=== PATIENT | female | born 1960 | race Caucasian/White ===

== ENCOUNTER 2023-10-30 07:11 | Day surgery (SDC) | payer BC ==
[2023-10-26 16:40] LABS: BASOPHILS % (AUTO) 0.4 % (0-1); EOSINOPHILS # (AUTO) 0.2 X10'3 (0-0.9); EOSINOPHILS % (AUTO) 4.8 % (0-6); LYMPHOCYTES # (AUTO) 1.6 X10'3 (1.1-4.8); LYMPHOCYTES % (AUTO) 31.4 % (21-51); MEAN CORPUSCULAR HEMOGLOBIN 31.4 PG (27.0-31.0); MEAN CORPUSCULAR HGB CONC 33.2 g/dL (33.0-36.5); MEAN CORPUSCULAR VOLUME 94.5 FL (78-98); MEAN PLATELET VOLUME 8.7 FL (7.4-10.4); MONOCYTES # (AUTO) 0.5 X10'3 (0-0.9); MONOCYTES % (AUTO) 8.9 % (2-12); NEUTROPHILS # (AUTO) 2.9 X10'3 (1.8-7.7); NEUTROPHILS % (AUTO) 54.5 % (42-75); PRE OP HEMATOCRIT 44.9 % (35.0-45.0); PRE OP HEMOGLOBIN 14.9 g/dL (12.0-16.0); PRE OP PLATELET COUNT 213 X10'3 (140-440); PRE OP WHITE BLOOD COUNT 5.3 10'3 (4.8-10.8); RED BLOOD COUNT 4.75 X10'6 (4.20-5.60); RED CELL DISTRIBUTION WIDTH 14.4 % (11.5-14.5)
[2023-10-26 16:42] LABS: ALBUMIN 3.6 G/DL (3.4-5.0); ALKALINE PHOSPHATASE 117 IU/L (46-116); BLOOD UREA NITROGEN 21 MG/DL (7-18); BUN/CREATININE RATIO 23.6 (10.0-20.0); CALCIUM 8.9 MG/DL (8.5-10.1); CHLORIDE 105 MMOL/L (99-107); CREATININE 0.89 MG/DL (0.40-0.90); PRE OP ALT 46 U/L (30-65); PRE OP ANION GAP 12 (8-16); PRE OP AST 49 U/L (10-37); PRE OP BILIRUB, TOTAL 0.2 MG/DL (0.0-1.0); PRE OP POTASSIUM 3.5 MMOL/L (3.4-5.1); PRE OP SODIUM 139 MMOL/L (135-145); TOTAL CARBON DIOXIDE 22.4 MMOL/L (24-32); TOTAL PROTEIN 7.1 G/DL (6.4-8.2); eGFR 64 ML/MIN
[2023-10-26 16:48] LABS: PRE OP GLUCOSE 215 MG/DL (70-104)
[2023-10-30] VITALS (11 sets, daily range): BP systolic 95–118; BP diastolic 55–77; PULSE 52–61; RESP 9–16; TEMP 97.2; O2SAT 94–100
[~2023-10-30] VITALS: Ht 160 cm; Wt 108.9 kg
[~2023-10-30 07:11] MED LIST: ACET-2971 PO; ARIP10TA57 PO; ASPI1TAB PO; ATOR40TA72 PO; BUPIVAcaine/PF 2.5mg/ml (0.25%) 10ml vial ONE; DESV50TA20 PO; DOCUMENT DATE & TIME OF BETA-BLOCKER PO ONE; GABA800T11 PO; INSU100V13 SQ; INSU100V41 SQ; MELO-102 PO; OMEP40CA21 PO; PROP40TA7 PO; TOP100T PO; [UNRECOGNIZED DRUG - OTHER] INJ; clindamycin 600mg/D5W 50ml 50 ML IV ONE; famotidine 20mg tablet PO ONE; ringers solution, lacted 1,000 ML IV ONE
[2023-10-30] MEDS ORDERED: fentaNYL/PF 50MCG/1 ML 2ML syringe ONE (10:40)
[2023-10-30] MEDS ORDERED: midazolam 1 mg/ML 2ml injection ONE (10:41)
[2023-10-30] MEDS ORDERED: acetaminophen 1,000mg/100ml IV 100 ML IV ONE (10:50)
[2023-10-30] MEDS ORDERED: HYDROmorphone/PF 0.2 MG/ML SYRINGE IV PRN ×2 (10:50)
[2023-10-30] MEDS ORDERED: morphine 4 MG/ML inj SYRINge IV PRN (10:50)
[2023-10-30] MEDS ORDERED: labetalol 20mg/4ml (5mg/ml) syringe IV PRN (10:50)
[2023-10-30] MEDS ORDERED: ketorolac tromethamine 15mg/ml inj. IV ONE (10:50)
[2023-10-30] MEDS ORDERED: proCHLORperazine 10 MG/2 ml inj IV PRN (10:50)
[2023-10-30] MEDS ORDERED: morphine 2 MG/ML inj. syringe IV PRN (10:50)
[2023-10-30] MEDS ORDERED: meperidine/PF 25mg/ml syringe IV PRN (10:50)
[2023-10-30] MEDS ORDERED: hydrALAZINE 20mg/ml inj. IV PRN (10:50)
[2023-10-30] MEDS ORDERED: ondansetron/PF 4mg/2ml inj IV PRN (10:50)
[2023-10-30] MEDS ORDERED: ringers solution, lacted 1,000 ML IV SCH (10:50)
[2023-10-30] MEDS ORDERED: LIDOcaine 0.5% (5mg/ml) 50ml vial ONE (11:03)
[2023-10-30] MEDS ORDERED: propofol inj 20 ML IV ONE ×2 (11:03)
[2023-10-30] MEDS ORDERED: bupivacaine (with preservative) 5 mg/ml inj. 50ml IJ ONE (11:12)
== END 2023-10-30 13:05 | disposition home or self-care (01) ==
LOC: PAS 07:11 → EDBD 09:45 → PAS 13:05
PROVIDERS: ATTEND Orthopaedic Surgery Hand Surgery
DX: M18.11 Unilateral primary osteoarthritis of first carpometacarpal joint, right hand (principal); J44.9 Chronic obstructive pulmonary disease, unspecified; G47.33 Obstructive sleep apnea (adult) (pediatric); F32.A Depression, unspecified; E11.9 Type 2 diabetes mellitus without complications; E66.9 Obesity, unspecified; Z68.42 Body mass index [BMI] 45.0-49.9, adult; G43.909 Migraine, unspecified, not intractable, without status migrainosus; F41.9 Anxiety disorder, unspecified; Z87.11 Personal history of peptic ulcer disease; Z91.040 Latex allergy status; Z88.2 Allergy status to sulfonamides; Z88.0 Allergy status to penicillin; Z88.1 Allergy status to other antibiotic agents; Z91.048 Other nonmedicinal substance allergy status; Z90.49 Acquired absence of other specified parts of digestive tract; Z90.710 Acquired absence of both cervix and uterus; Z98.890 Other specified postprocedural states; Z79.899 Other long term (current) drug therapy
CPT/HCPCS: 25310; 25447; 36415; 80053; 82948; 85025; A6258; J2250; J2704; J3010; J3490; J7030; J7120; Z7506; Z7508; Z7512; A4215; A4618; A6402; A7000

== ENCOUNTER 2024-01-11 11:03 | Outpatient (CLI) | payer BC ==
[~2024-01-11 11:03] MED LIST changes: -BUPIVAcaine/PF 2.5mg/ml (0.25%) 10ml vial ONE; -DOCUMENT DATE & TIME OF BETA-BLOCKER PO ONE; -clindamycin 600mg/D5W 50ml 50 ML IV ONE; -famotidine 20mg tablet PO ONE; -ringers solution, lacted 1,000 ML IV ONE
[2024-01-11 12:32] LABS: BASOPHILS # (AUTO) 0.1 X10'3 (0-0.2); BASOPHILS % (AUTO) 0.7 % (0-1); EOSINOPHILS # (AUTO) 0.3 X10'3 (0-0.9); EOSINOPHILS % (AUTO) 3.6 % (0-6); LYMPHOCYTES # (AUTO) 2.2 X10'3 (1.1-4.8); LYMPHOCYTES % (AUTO) 29.6 % (21-51); MEAN CORPUSCULAR HEMOGLOBIN 30.9 PG (27.0-31.0); MEAN CORPUSCULAR HGB CONC 33.3 g/dL (33.0-36.5); MEAN CORPUSCULAR VOLUME 92.8 FL (78-98); MEAN PLATELET VOLUME 8.4 FL (7.4-10.4); MONOCYTES # (AUTO) 0.5 X10'3 (0-0.9); MONOCYTES % (AUTO) 7.3 % (2-12); NEUTROPHILS # (AUTO) 4.4 X10'3 (1.8-7.7); NEUTROPHILS % (AUTO) 58.8 % (42-75); PRE OP HEMATOCRIT 41.5 % (35.0-45.0); PRE OP HEMOGLOBIN 13.8 g/dL (12.0-16.0); PRE OP PLATELET COUNT 228 X10'3 (140-440); PRE OP WHITE BLOOD COUNT 7.4 10'3 (4.8-10.8); RED BLOOD COUNT 4.48 X10'6 (4.20-5.60)
[2024-01-11 12:51] LABS: ALBUMIN 3.3 G/DL (3.4-5.0); ALBUMIN/GLOBULIN RATIO 0.9 (1.1-1.5); ALKALINE PHOSPHATASE 90 IU/L (46-116); BLOOD UREA NITROGEN 17 MG/DL (7-18); BUN/CREATININE RATIO 17.7 (10.0-20.0); CALCIUM 8.7 MG/DL (8.5-10.1); CHLORIDE 107 MMOL/L (99-107); CREATININE 0.96 MG/DL (0.40-0.90); PRE OP ALT 33 U/L (30-65); PRE OP ANION GAP 8 (8-16); PRE OP AST 30 U/L (10-37); PRE OP BILIRUB, TOTAL 0.2 MG/DL (0.0-1.0); PRE OP GLUCOSE 129 MG/DL (70-104); PRE OP POTASSIUM 4.8 MMOL/L (3.4-5.1); PRE OP SODIUM 143 MMOL/L (135-145); TOTAL CARBON DIOXIDE 27.9 MMOL/L (24-32); TOTAL PROTEIN 6.8 G/DL (6.4-8.2); eGFR 59 ML/MIN
[2024-01-11 12:58] LABS: HEMOGLOBIN A1C 8.8 % (4.5-6.2)
[2024-01-11] MEDS ORDERED: AMIT50TA15 PO (13:11)
[2024-01-11] MEDS ORDERED: [UNRECOGNIZED DRUG - OTHER] (13:11)
[2024-01-11] MEDS ORDERED: [UNRECOGNIZED DRUG - OTHER] (13:11)
[2024-01-11] MEDS ORDERED: IBUP-862 PO (13:11)
[2024-01-11] MEDS ORDERED: INSU100V41 SQ (13:11)
[2024-01-11] MEDS ORDERED: [UNRECOGNIZED DRUG - OTHER] PO (13:11)
[2024-01-11] MEDS ORDERED: [UNRECOGNIZED DRUG - OTHER] (13:11)
[2024-01-11] MEDS ORDERED: ASPI-845 PO (13:11)
== END 2024-01-11 23:59 | disposition home or self-care (01) ==
LOC: EDBD → LAB 11:03 → EDSTATUS 01-18 10:45
PROVIDERS: ATTEND Orthopaedic Surgery
DX: Z01.812 Encounter for preprocedural laboratory examination (principal); M17.11 Unilateral primary osteoarthritis, right knee; E11.9 Type 2 diabetes mellitus without complications; Z79.4 Long term (current) use of insulin
CPT/HCPCS: 36415; 80053; 83036; 85025; 87081

== ENCOUNTER 2024-08-26 06:21 | Day surgery (SDC) | payer BC ==
[2024-08-20 12:42] LABS: HEMOGLOBIN A1C 6.9 % (4.5-6.2)
[2024-08-20 12:48] LABS: ALBUMIN 3.7 G/DL (3.4-5.0); ALBUMIN/GLOBULIN RATIO 1.1 (1.1-1.5); ALKALINE PHOSPHATASE 60 IU/L (46-116); BLOOD UREA NITROGEN 20 MG/DL (7-18); BUN/CREATININE RATIO 19.6 (10.0-20.0); CALCIUM 9.1 MG/DL (8.5-10.1); CHLORIDE 103 MMOL/L (99-107); CREATININE 1.02 MG/DL (0.40-0.90); PRE OP ALT 25 U/L (30-65); PRE OP ANION GAP 6 (8-16); PRE OP AST 18 U/L (10-37); PRE OP BILIRUB, TOTAL 0.3 MG/DL (0.0-1.0); PRE OP GLUCOSE 95 MG/DL (70-104); PRE OP POTASSIUM 4.3 MMOL/L (3.4-5.1); PRE OP SODIUM 139 MMOL/L (135-145); TOTAL PROTEIN 7.1 G/DL (6.4-8.2); eGFR 55 ML/MIN
[2024-08-20 12:50] LABS: BASOPHILS % (AUTO) 0.6 % (0-1); EOSINOPHILS # (AUTO) 0.2 X10'3 (0-0.9); EOSINOPHILS % (AUTO) 3.1 % (0-6); LYMPHOCYTES # (AUTO) 2.4 X10'3 (1.1-4.8); LYMPHOCYTES % (AUTO) 31.8 % (21-51); MEAN CORPUSCULAR HEMOGLOBIN 30.2 PG (27.0-31.0); MEAN CORPUSCULAR HGB CONC 33.1 g/dL (33.0-36.5); MEAN CORPUSCULAR VOLUME 91.4 FL (78-98); MEAN PLATELET VOLUME 8.1 FL (7.4-10.4); MONOCYTES # (AUTO) 0.4 X10'3 (0-0.9); NEUTROPHILS # (AUTO) 4.3 X10'3 (1.8-7.7); NEUTROPHILS % (AUTO) 58.5 % (42-75); PRE OP HEMATOCRIT 43.9 % (35.0-45.0); PRE OP HEMOGLOBIN 14.5 g/dL (12.0-16.0); PRE OP PLATELET COUNT 250 X10'3 (140-440); PRE OP WHITE BLOOD COUNT 7.4 10'3 (4.8-10.8); RED BLOOD COUNT 4.81 X10'6 (4.20-5.60); RED CELL DISTRIBUTION WIDTH 13.9 % (11.5-14.5)
[~2024-08-26] VITALS: Ht 160 cm; Wt 107.9 kg
[2024-08-26] VITALS (24 sets, daily range): BP systolic 96–124; BP diastolic 57–76; PULSE 60–96; RESP 10–18; TEMP 96.6–97.9; O2SAT 89–100
[2024-08-26] MEDS: DOCUMENT DATE & TIME OF BETA-BLOCKER PO ONE (04:30)
[~2024-08-26 06:21] MED LIST changes: +ALBU8HFA PO; +AMIT50TA15 PO; -ASPI1TAB PO; +BUDE10.7 INH; +CHOL20002 PO; -DESV50TA20 PO; +EPINEPHRINE PEN SQ; +FENO145T38 PO; +GABA-1555 PO; -GABA800T11 PO; -MELO-102 PO; +METH-621 PO; -OMEP40CA21 PO; +PROP15DR EACHEYE; +SEMA1PEN3 SUBCUT; +TEZE210S; -TOP100T PO; -[UNRECOGNIZED DRUG - OTHER] INJ; +[UNRECOGNIZED DRUG - OTHER] PO; +[UNRECOGNIZED DRUG - OTHER] PO; +[UNRECOGNIZED DRUG - OTHER] PO; +albuterol 2.5 MG/3 ML nebule NEB ONE
[2024-08-26] MEDS ORDERED: mineral oil 10ml sterile, topical TP ONE (07:15)
[2024-08-26] MEDS: ringers solution, lacted 1,000 ML IV SCH ×2 (08:04→09:35)
[2024-08-26] MEDS: ceFAZolin 2gm in dextrose, iso 50 ML IV ONE (08:05)
[2024-08-26] MEDS: vancomycin 1,500 MG in NS 300ml IV soln IV ONE (08:05)
[2024-08-26] MEDS: famotidine 20mg tablet PO ONE (08:06)
[2024-08-26] MEDS: tranexamic acid 650mg tablet PO ONE (08:06)
[2024-08-26] MEDS ORDERED: MIDAZolam 1mg/ml 10ml vial ONE (09:28)
[2024-08-26] MEDS ORDERED: fentaNYL/PF 50MCG/1 ML 2ML syringe ONE (09:28)
[2024-08-26] MEDS ORDERED: BUPIVAcaine/dex-water/PF 7.5 mg/ml 2ml ampul ONE (09:30)
[2024-08-26] MEDS ORDERED: proCHLORperazine 10 MG/2 ml inj IV PRN (09:35)
[2024-08-26] MEDS ORDERED: meperidine/PF 25mg/ml syringe IV PRN ×3 (09:35)
[2024-08-26] MEDS ORDERED: morphine 4 MG/ML inj SYRINge IV PRN (09:35)
[2024-08-26] MEDS ORDERED: enalaprilat dihydrate 2.5mg/2ml vial IV PRN (09:35)
[2024-08-26] MEDS ORDERED: morphine 2 MG/ML inj. syringe IV PRN (09:35)
[2024-08-26] MEDS ORDERED: ondansetron/PF 4mg/2ml inj IV PRN ×2 (09:35→12:05)
[2024-08-26] MEDS ORDERED: labetalol 20mg/4ml (5mg/ml) syringe IV PRN (09:35)
[2024-08-26] MEDS ORDERED: ondansetron/PF 4mg/2ml inj ONE ×2 (11:06→11:56)
[2024-08-26] MEDS ORDERED: ROPIVAcaine 0.5% (5mg/ml) 30ml vial ONE (11:45)
[2024-08-26] MEDS ORDERED: methylphenidate 5mg tablet PO PRN (12:05)
[2024-08-26] MEDS ORDERED: bisacodyl 10mg suppository rectal RC PRN (12:05)
[2024-08-26] MEDS ORDERED: acetaminophen 325mg tablet PO PRN (12:05)
[2024-08-26] MEDS ORDERED: HYDROmorphone inj. 0.5 MG/0.5 ML DISP.SYRIN IV PRN (12:05)
[2024-08-26] MEDS ORDERED: diphenhydrAMINE 25mg capsule PO PRN ×2 (12:05)
[2024-08-26] MEDS ORDERED: oxyCODONE IR 5mg (immed. release) tablet PO PRN (12:05)
[2024-08-26] MEDS ORDERED: magnesium hydroxide 30ml (MOM) UD suspension PO PRN (12:05)
[2024-08-26] MEDS ORDERED: albuterol 2.5 MG/3 ML nebule NEB PRN (12:05)
[2024-08-26] MEDS ORDERED: potassium cl 20mEq in 1/2 NS 1,000 ML IV SCH (12:05)
[2024-08-26] MEDS ORDERED: naloxone 0.4 mg/ml inj IV PRN (12:05)
[2024-08-26] MEDS ORDERED: BUPIVAcaine/PF 7.5mg/ml (0.75%) 10ml vial ONE (12:09)
[2024-08-26] MEDS ORDERED: non-formulary drug (Acetaminophen (Tylenol Arthritis) 1 TAB) PO SCH (16:00)
[2024-08-26] MEDS: propranolol 40mg tablet PO SCH (16:03)
[2024-08-26] MEDS: gabapentin 400mg capsule PO SCH (16:03)
[2024-08-26] MEDS: acetaminophen 325mg tablet PO SCH (16:04)
[2024-08-26] MEDS: oxyCODONE IR 5mg (immed. release) tablet PO PRN (16:04)
[2024-08-26] MEDS: ceFAZolin/D5W- 1GM premix 50 ML IV SCH (16:05)
[2024-08-26] MEDS ORDERED: INSULIN LISPRO 100 UNIT/ML INSULN.PEN MULTI-DOSE SQ SCH ×2 (17:30→21:00)
[2024-08-26] MEDS ORDERED: dextrose 50%-water 50ml dispensing syringe IV PRN ×2 (18:55)
[2024-08-26] MEDS ORDERED: glucagon, human recombinant 1mg kit SUBCUT PRN (18:55)
[2024-08-26] MEDS ORDERED: DEXTROSE 15 GM of carb/4 tabs (each vial/BOTTLE has 4 tablets) PO PRN ×2 (18:55)
[2024-08-26] MEDS: Budesonide/Glycopyr/Formoterol (Breztri Aerosphere Inhaler) IH SCH (20:00)
[2024-08-26] MEDS: Propylene Glycol/Peg 400 (Systane 0.3-0.4% Eye Drops) EACHEYE SCH (20:00)
[2024-08-26] MEDS: sodium chloride 0.45% 1,000 ML IV SCH (20:34)
[2024-08-26] MEDS: VANCOMYCIN 1GM 200ML H20 (PEG) 200 ML IV SCH (20:34)
[2024-08-26] MEDS: atorvastatin 20mg tablet PO SCH (20:36)
[2024-08-26] MEDS: amitriptyline 50mg tablet PO SCH (20:36)
[2024-08-26] MEDS: sennosides 8.6mg tablet PO SCH (20:37)
[2024-08-26] MEDS: fenofibrate 145mg tablet PO SCH (20:37)
[2024-08-26] MEDS: INSULIN LISPRO 100 UNIT/ML INSULN.PEN MULTI-DOSE SQ SCH (20:50)
[2024-08-27 02:00] VITALS: BP 111/67; PULSE 71; RESP 16; TEMP 96; O2SAT 96
[2024-08-27 06:00] VITALS: BP 130/67; PULSE 71; RESP 16; TEMP 96.9; O2SAT 96; O2SAT 99
[2024-08-27 06:23] LABS: BASOPHILS % (AUTO) 0.3 % (0-1); EOSINOPHILS % (AUTO) 0.1 % (0-6); HEMATOCRIT 39.9 % (35.0-45.0); HEMOGLOBIN 13.5 g/dl (12.0-16.0); LYMPHOCYTES # (AUTO) 1.9 X10'3 (1.1-4.8); LYMPHOCYTES % (AUTO) 13.9 % (21-51); MEAN CORPUSCULAR HEMOGLOBIN 30.9 PG (27.0-31.0); MEAN CORPUSCULAR HGB CONC 33.7 g/dL (33.0-36.5); MEAN CORPUSCULAR VOLUME 91.5 FL (78-98); MEAN PLATELET VOLUME 8.5 FL (7.4-10.4); MONOCYTES # (AUTO) 1.1 X10'3 (0-0.9); MONOCYTES % (AUTO) 7.8 % (2-12); NEUTROPHILS # (AUTO) 10.5 X10'3 (1.8-7.7); NEUTROPHILS % (AUTO) 77.9 % (42-75); PLATELET COUNT 228 X10'3 (140-440); RED BLOOD COUNT 4.36 X10'6 (4.20-5.60); RED CELL DISTRIBUTION WIDTH 13.7 % (11.5-14.5); WHITE BLOOD COUNT 13.4 X10'3 (4.5-11.0)
[2024-08-27 06:45] LABS: ANION GAP 7 (8-16); CHLORIDE 100 MMOL/L (99-107); SODIUM 136 MMOL/L (135-145); TOTAL CARBON DIOXIDE 28.7 MMOL/L (24-32)
[2024-08-27] MEDS: HYDROmorphone 1 mg/ml syringe IV PRN (07:44)
[2024-08-27] MEDS: cholecalciferol (vitamin D3) 1,000 unit (25mcg) tablet PO SCH (07:53)
[2024-08-27] MEDS: aspirin 325mg tablet PO SCH (07:53)
[2024-08-27] MEDS: aripiprazole 10MG tablet PO SCH (07:53)
[2024-08-27] MEDS: insulin glargine (Lantus) pen - multi-dose SQ SCH (07:57)
[2024-08-27] MEDS ORDERED: [UNRECOGNIZED DRUG - OTHER] PO SCH (08:00)
[2024-08-27] MEDS ORDERED: [UNRECOGNIZED DRUG - OTHER] PO SCH (08:00)
[2024-08-27] MEDS ORDERED: [UNRECOGNIZED DRUG - OTHER] PO SCH (08:00)
[2024-08-27 10:00] VITALS: BP 103/63; PULSE 69; RESP 20; TEMP 97.5; O2SAT 95
[2024-08-27 18:00] VITALS: BP 112/76; PULSE 68; RESP 16; TEMP 97.4; O2SAT 95
[2024-08-27 20:01] VITALS: RESP 16; O2SAT 94
[2024-08-27] MEDS: celeCOXIB 100mg capsule PO SCH (20:35)
[2024-08-27 22:00] VITALS: BP 125/72; PULSE 80; RESP 16; TEMP 98.3; O2SAT 96
[2024-08-28 06:00] VITALS: BP 100/71; PULSE 77; RESP 16; TEMP 97.6; O2SAT 94
[2024-08-28 06:02] LABS: BASOPHILS % (AUTO) 0.3 % (0-1); EOSINOPHILS # (AUTO) 0.2 X10'3 (0-0.9); EOSINOPHILS % (AUTO) 2.3 % (0-6); HEMATOCRIT 34.7 % (35.0-45.0); HEMOGLOBIN 11.9 g/dl (12.0-16.0); LYMPHOCYTES # (AUTO) 2.3 X10'3 (1.1-4.8); LYMPHOCYTES % (AUTO) 25.8 % (21-51); MEAN CORPUSCULAR HEMOGLOBIN 31.3 PG (27.0-31.0); MEAN CORPUSCULAR HGB CONC 34.3 g/dL (33.0-36.5); MEAN CORPUSCULAR VOLUME 91.2 FL (78-98); MEAN PLATELET VOLUME 8.5 FL (7.4-10.4); MONOCYTES % (AUTO) 10.6 % (2-12); NEUTROPHILS # (AUTO) 5.5 X10'3 (1.8-7.7); PLATELET COUNT 181 X10'3 (140-440); RED CELL DISTRIBUTION WIDTH 13.7 % (11.5-14.5)
[2024-08-28 10:00] VITALS: BP 170/78; PULSE 77; RESP 16; TEMP 97.9; O2SAT 94
[2024-08-28 13:00] VITALS: RESP 12; O2SAT 92
[2024-08-28 15:40] VITALS: RESP 15
[2024-08-28] MEDS ORDERED: acetaminophen 325mg tablet PO PRN (18:20)
[2024-08-30] MEDS ORDERED: SEMAGLUTIDE 1 MG SQ SCH (08:00)
== END 2024-08-28 16:30 | disposition home or self-care (01) ==
LOC: PAS 06:21 → ORTHO 4S 14:56 → PAS 08-28 16:30
PROVIDERS: ATTEND Orthopaedic Surgery
DX: M17.11 Unilateral primary osteoarthritis, right knee (principal); G89.18 Other acute postprocedural pain; E11.9 Type 2 diabetes mellitus without complications; Z79.4 Long term (current) use of insulin; Z88.0 Allergy status to penicillin; Z88.1 Allergy status to other antibiotic agents; Z88.2 Allergy status to sulfonamides; Z91.040 Latex allergy status; Z88.8 Allergy status to other drugs, medicaments and biological substances
CPT/HCPCS: 20985; 27447; 36415; 64447; 80051; 80053; 82948; 83036; 85025; 87081; 93005; C1713; C1776; J0690; J1171; J1815; J2250; J2405; J2795; J3010; J3372; J3490; J7030; J7120; S2900; Z7506; Z7508; Z7512; A4215; A4615; A6253; A6449; A7000; G0378